=== PATIENT | female | born 1965 | race Caucasian/White ===

== ENCOUNTER 2017-02-26 15:50 | Emergency (ER) | payer BC ==
[~2017-02-26] VITALS: Ht 172.7 cm; Wt 120.2 kg
[~2017-02-26 15:50] MED LIST: AMOX-355 PO; BUPR300T PO; DULO60CA6 PO; LAMO100T69 PO; PALI6TAB PO; QTP200T PO
--- OUTSIDE RECORDS SUMMARY | 2017-02-26 15:55 | XMS REPORT ---
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
--- OUTSIDE RECORDS SUMMARY | 2017-02-26 15:56 | XMS REPORT ---
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 Problem Pain in soft tissues of limb 729.5 Active Assessment Cat bite, subsequent encounter W55.01XD Active Problem Routine general medical examination at health care facility V70.0 Active Problem Generalized hyperhidrosis 780.8 Active Medications Medication Code System Code Instructions Start Date End Date Status Dosage Vitamin D (Ergocalciferol) [facility] [id number] UNIT TAKE ONE CAPSULE BY MOUTH ONCE A WEEK Calcium [facility] [address]-40 600 MG Orally Twice a day OTC Jul 26, 2015 1 tablet with meals Invega [facility] [address]-15 6 MG Orally Once a day 1 tablet Cymbalta [facility] [address]-72 60 MG Twice a day December 29, 2013 1 capsule by Oral route Omeprazole [facility] [address]-47 20 MG Orally Once a day 1 capsule Naproxen [facility] [address]-83 500 MG Orally every 12 hrs Jul 26, 2015 1 tablet as needed Amoxicillin-Pot Clavulanate [facility] [address]-19 500-125 MG Orally every 8 hrs 1 tablet Naproxen [facility] [address]-21 500 MG Orally Twice a day 1 tablet Lamictal [facility] [address]-08 150 MG Orally Twice a day December 29, 2013 1 tablet by Oral route Wellbutrin SR [facility] [address]-64 150 mg December 29, 2013 150 mg by Oral route 2 times per day Lyrica [facility] [address]-95 75 MG Orally Twice a day Jun 14, 2015 1 capsule Vitamin D3 Maximum Strength [facility] 97917-31867 55562 Orally once a week Jul 1 tab Seroquel XR [facility] [address]-17 200 mg Sep 18, 2011 1 tablet by Oral route 1 time per day for 30 day(s) Procedures Procedure Coding System Code Date Office Visit, Est Pt., Level 3 CPT-4 35943 Aug 30, 2015 Vital Signs Date/Time: Aug 30, 2015 Temperature 98.3 F Weight 291.5 lbs Height 68 in BMI 44.32 Index Blood Pressure Diastolic 82 mmHg Blood Pressure Systolic 128 mmHg Cardiac Monitoring Heart Rate 96 bpm Results No Known Results Summary Purpose eClinicalWorks Submission
--- OUTSIDE RECORDS SUMMARY | 2017-02-26 15:56 | XMS REPORT ---
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 Problem Pain in soft tissues of limb 729.5 Active Assessment Right hip pain M25.551 Active Problem Routine general medical examination at health care facility V70.0 Active Problem Generalized hyperhidrosis 780.8 Active Medications Medication Code System Code Instructions Start Date End Date Status Dosage Walker [facility] [address] - as directed Jun 23, 2016 For use while ambulating as needed Amoxicillin [facility] [address]-11 500 MG Orally 3 times a day Jun 23, 2016 Jul 03, 2016 1 tablet Omeprazole [facility] [address]-00 20 MG Orally Once a day 1 capsule Seroquel XR [facility] [address]-33 200 mg Sep 18, 2011 1 tablet by Oral route 1 time per day for 30 day(s) Duloxetine HCl [facility] [address]-43 60 MG Orally Once a day not defined Naproxen [facility] [address]-41 500 MG Orally every 12 hrs Jul 26, 2015 1 tablet as needed Wever Carbonate ER [facility] [address]-05 450 MG Orally Twice a day 1 tablet Wellbutrin SR [facility] [address]-61 150 mg December 29, 2013 150 mg by Oral route 2 times per day Latuda [facility] [address]-93 120 MG Orally Once a day 1 tablet with food Lyrica [facility] [address]-10 75 MG Orally Once a day Jun 14, 2015 1 capsule at bedtime Procedures Procedure Coding System Code Date Office Visit, Est Pt., Level 3 CPT-4 25166 Jun 23, 2016 Vital Signs Date/Time: Jun 23, 2016 Cardiac Monitoring Heart Rate 82 bpm Weight 290.7 lbs Height 68 in BMI 44.20 Index Blood Pressure Diastolic 78 mmHg Blood Pressure Systolic 126 mmHg Results No Known Results Summary Purpose eClinicalWorks Submission
--- OUTSIDE RECORDS SUMMARY | 2017-02-26 15:56 | XMS REPORT ---
Author Author TUNDE HERNANDEZ Organization e[employer] Address Unknown Phone Unavailable Care Team Providers Care Marketing Developer Name Role Phone TUNDE HERNANDEZ CP Unavailable [...] Active Problem Generalized hyperhidrosis 780.8 Active Medications No Known Medications Results No Known Results Summary Purpose eClinicalWorks Submission
--- OUTSIDE RECORDS SUMMARY | 2017-02-26 15:56 | XMS REPORT ---
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
--- OUTSIDE RECORDS SUMMARY | 2017-02-26 15:56 | XMS REPORT ---
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 98367287 Problem Other malaise and fatigue 780.79 Active 433621827 Problem Generalized hyperhidrosis 780.8 Active 451790254 Problem Pain in soft tissues of limb 729.5 Active 15408603 Problem Ingrowing nail 703.0 Active 769180264 Problem Routine general medical examination at health care facility V70.0 Active 251973628 ALLERGIES Substance Reaction Event Type Date Status Triple Antibiotic burning Drug Allergy Mar, Active Codeine Phosphate Unknown Drug Allergy Mar, Active Antifungal burning Drug Allergy Mar, Active SOCIAL HISTORY No smoking Hx information available PLAN OF CARE VITAL SIGNS Height 68 in 2016-04-07 Weight 298.9 lbs 2016-04-07 Heart Rate 80 bpm 2016-04-07 Respiratory Rate 18 2016-04-07 BMI 45.44 kg/m2 2016-04-07 Blood pressure systolic 128 mmHg 2016-04-07 Blood pressure diastolic 76 mmHg 2016-04-07 MEDICATIONS Medication Instructions Dosage Frequency Start Date End Date Duration Status Omeprazole 20 MG Orally Once a day 1 capsule 24h Active Seroquel XR 200 mg 1 tablet by Oral route 1 time per day for 30 day(s) Sep, Active Naproxen 500 MG Orally every 12 hrs 1 tablet as needed 12h 10 Jul, 2015 Active Latuda 120 MG Orally Once a day 1 tablet with food 24h Active Lamictal 150 MG Orally once a day 1 tablet by Oral route 24h December, Active Lotrisone 1-0.05 % Externally Twice a day 1 application to affected area 12h 23 Sep, 2015 Active Duloxetine HCl 60 MG Orally Once a day 24h Active Wellbutrin SR 150 mg 150 mg by Oral route 2 times per day December, Active [place]ord Carbonate ER 450 MG Orally Twice a day 1 tablet 12h Active Lyrica 75 MG Orally Once a day 1 capsule at bedtime 24h May, Active RESULTS Name Result Date Reference Range Xray : Hip, Right 2 views (IN HOUSE) 2016-04-07 PROCEDURES Procedure Date Ordered Related Diagnosis Body Site X-RAY EXAM HIP UNI 2-3 VIEWS Apr 07, 2016 Office Visit, Est Pt., Level 3 Apr 07, 2016 IMMUNIZATIONS No Known Immunizations
--- OUTSIDE RECORDS SUMMARY | 2017-02-26 15:56 | XMS REPORT ---
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
--- OUTSIDE RECORDS SUMMARY | 2017-02-26 15:56 | XMS REPORT ---
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 Problem Pain in soft tissues of limb 729.5 Active Assessment Moderate episode of recurrent major depressive disorder F33.1 Active Problem Routine general medical examination at health care facility V70.0 Active Problem Generalized hyperhidrosis 780.8 Active Medications Medication Code System Code Instructions Start Date End Date Status Dosage Lyrica [facility] [address]-14 75 MG Orally Twice a day Jun 14, 2015 1 capsule Naproxen [facility] [address]-84 500 MG Orally every 12 hrs Jul 26, 2015 1 tablet as needed Seroquel XR [facility] [address]-94 200 mg Sep 18, 2011 1 tablet by Oral route 1 time per day for 30 day(s) Lotrisone [facility] [address]-44 1-0.05 % Externally Twice a day Oct 09, 2015 1 application to affected area Wellbutrin SR [facility] [address]-85 150 mg December 29, 2013 150 mg by Oral route 2 times per day Duloxetine HCl [facility] [address]-68 60 MG Orally Once a day not defined Latuda [facility] [address]-08 80 MG Orally twice a day 1 tablet with food Cymbalta [facility] [address]-08 60 MG Twice a day December 29, 2013 1 capsule by Oral route Omeprazole [facility] [address]-29 20 MG Orally Once a day 1 capsule Lamictal [facility] [address]-40 150 MG Orally Twice a day December 29, 2013 1 tablet by Oral route BuPROPion HCl [facility] [address]-95 not defined Hato Candal Carbonate ER [facility] [address]-28 450 MG Orally Twice a day 1 tablet Procedures Procedure Coding System Code Date Office Visit, Est Pt., Level 3 CPT-4 68332 March 03, 2016 Vital Signs Date/Time: March 03, 2016 Cardiac Monitoring Heart Rate 96 bpm Weight 296.6 lbs Height 68 in BMI 45.09 Index Blood Pressure Diastolic 84 mmHg Blood Pressure Systolic 124 mmHg Results No Known Results Summary Purpose eClinicalWorks Submission
--- OUTSIDE RECORDS SUMMARY | 2017-02-26 15:56 | XMS REPORT ---
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 Problem Pain in soft tissues of limb 729.5 Active Assessment Primary osteoarthritis involving multiple joints M15.0 Active Problem Routine general medical examination at health care facility V70.0 Active Problem Generalized hyperhidrosis 780.8 Active Medications Medication Code System Code Instructions Start Date End Date Status Dosage Lyrica [facility] [address]-05 100 MG Orally Once a day at bedtime Jun 14, 2015 1 capsule Invega [facility] [address]-60 6 MG Orally Once a day 1 tablet Naproxen [facility] [address]-29 500 MG Orally every 12 hrs Jul 26, 2015 1 tablet as needed Cymbalta [facility] [address]-22 60 MG Twice a day December 29, 2013 1 capsule by Oral route Lamictal [facility] [address]-64 150 MG Orally Twice a day December 29, 2013 1 tablet by Oral route Omeprazole [facility] [address]-23 20 MG Orally Once a day 1 capsule Calcium [facility] [address]-59 600 MG Orally Twice a day OTC Jul 26, 2015 1 tablet with meals Seroquel XR [facility] [address]-03 200 mg Sep 18, 2011 1 tablet by Oral route 1 time per day for 30 day(s) Vitamin D3 Maximum Strength [facility] 05466[address]403 Orally once a week Jul 1 tab Wellbutrin SR [facility] [address]-36 150 mg December 29, 2013 150 mg by Oral route 2 times per day Naproxen [facility] [address]-32 500 MG Orally Twice a day 1 tablet Procedures Procedure Coding System Code Date Office Visit, Est Pt., Level 3 CPT-4 34539 Jul 26, 2015 Vital Signs Date/Time: Jul 26, 2015 Temperature 98.0 F Weight 290.6 lbs Height 68 in BMI 44.18 Index Blood Pressure Diastolic 90 mmHg Blood Pressure Systolic 128 mmHg Cardiac Monitoring Heart Rate 104 bpm Results No Known Results Summary Purpose eClinicalWorks Submission
--- OUTSIDE RECORDS SUMMARY | 2017-02-26 15:57 | XMS REPORT ---
Author Author TUNDE HERNANDEZ Organization eClinicalWorks Address Unknown Phone Unavailable Care Team Providers Care Fluid Designer Name Role Phone TUNDE HERNANDEZ CP Unavailable [...] Start Date End Date Status Dosage Lyrica [facility] [address]-02 75 MG Orally Twice a day Jun 14, 2015 1 capsule Results No Known Results Summary Purpose eClinicalWorks Submission
--- OUTSIDE RECORDS SUMMARY | 2017-02-26 15:57 | XMS REPORT ---
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
--- OUTSIDE RECORDS SUMMARY | 2017-02-26 15:57 | XMS REPORT ---
Author Author TUNDE HERNANDEZ Organization eClinicalWorks Address Unknown Phone Unavailable Care Team Providers Care Mechanical Piping Designer Name Role Phone TUNDE HERNANDEZ CP [...]
--- OUTSIDE RECORDS SUMMARY | 2017-02-26 15:57 | XMS REPORT ---
Author Author TUNDE HERNANDEZ Organization eClinicalWorks Address Unknown Phone Unavailable Care Team Providers Care Casting House Worker Name Role Phone TUNDE HERNANDEZ CP Unavailable [...]
--- OUTSIDE RECORDS SUMMARY | 2017-02-26 15:57 | XMS REPORT ---
Author Author TUNDE HERNANDEZ [facility] eClinicalWorks Address Unknown Phone Unavailable Care Team Providers Care Financing Analyst Name Role Phone TUNDE HERNANDEZ CP Unavailable Allergies, Adverse Reactions, Alerts Substance Reaction Event Type Codeine Phosphate Info Not Available Drug Allergy Problems Problem Type Condition Code Onset Dates Condition Status Assessment Pain in joint, pain in unspecified joint M25.50 Active Problem Other malaise and fatigue 780.79 [...] Instructions Start Date End Date Status Dosage PredniSONE [facility] [address]-73 20 MG Orally Once a day Jun 14, 2015 Jun 19, 2015 1 tablet with food or milk Wellbutrin SR [facility] [address]-58 150 mg December 29, 2013 150 mg by Oral route 2 times per day Omeprazole [facility] [address]-25 20 MG Orally Once a day [address] [facility] [address]-65 60 MG Twice a day December 29, 2013 1 capsule by Oral route Lamictal [facility] [address]-76 150 MG Orally Twice a day December 29, 2013 1 tablet by Oral route Lyrica [facility] [address]-42 75 MG Orally Twice a day Jun 14, [address] [facility] [address]-41 500 MG Orally Twice a day 1 tablet Seroquel XR [facility] [address]-98 200 mg Sep 18, 2011 1 tablet by Oral route 1 time per day for 30 day(s) Procedures Procedure Coding System Code Date X-RAY EXAM OF LOWER SPINE CPT-4 50264 Jun 14, 2015 Office Visit, Est Pt., Level 3 CPT-4 68338 Jun 14, 2015 X-RAY EXAM OF HIP CPT-4 73575 Jun 14, 2015 Vital Signs Date/Time: Jun 14, 2015 Temperature 99.1 F Weight 289.1 lbs Height 68 in BMI 43.95 Index Blood Pressure Diastolic 82 mmHg Blood Pressure Systolic 130 mmHg Cardiac Monitoring Heart Rate 80 bpm Results No Known Results Summary Purpose eClinicalWorks Submission
--- OUTSIDE RECORDS SUMMARY | 2017-02-26 15:57 | XMS REPORT | Continuity of Care Document ---
Author Author Formerly [facility] Address Unknown Phone Unavailable Allergies Active Description Code Type Severity Reaction Onset Reported/Identified Relationship to Patient Clinical Status Yes codeine Drug Allergy 11/15/2008 Yes codeine Drug Allergy N/A N/A 11/15/2008 Yes codeine [id number] Drug Allergy Unknown N/A 04/24/2011 Medications Problems Date Dx Coded Attending Type Code Diagnosis Diagnosed By 07/16/1415 ANDREA GUILLORY Ot M16.11 UNILATERAL PRIMARY OSTEOARTHRITIS, RIGHT 05/26/2008 MUOGHALU DDS, MEL N V58.69 taking high-risk medication 05/26/2008 ERICK PEREZ APRN V58.69 taking high-risk medication 05/26/2008 TUNDE HERNANDEZ APRN S V58.69 taking high-risk medication 05/26/2008 ERICK PEREZ APRN V58.69 taking high-risk medication 05/26/2008 MUOGHALU DDS, MEL N V58.69 taking high-risk medication 11/15/2008 MUOGHALU DDS, MEL N 599.0 Urinary Tract Infection 11/15/2008 MUOGHALU DDS, MEL N 788.1 pain during urination (dysuria) 11/15/2008 ERICK PEREZ APRN 599.0 Urinary Tract Infection 11/15/2008 ERICK PEREZ APRN 788.1 pain during urination (dysuria) 11/15/2008 LUANN HERNANDEZ APRNA S 599.0 Urinary Tract Infection 11/15/2008 TUNDE HERNANDEZ APRN S 788.1 pain during urination (dysuria) 11/15/2008 ERICK PEREZ APRN 599.0 Urinary Tract Infection 11/15/2008 ERICK PEREZ APRN 788.1 pain during urination (dysuria) 11/15/2008 MUOGHALU TEOFILOS, MEL N 599.0 Urinary Tract Infection 11/15/2008 MUOGHALU DDS, MEL N 788.1 pain during urination (dysuria) 06/27/2009 MUOGHALU DDS, MEL N 300.4 DYSTHYMIC DISORDER 06/27/2009 MUOGHALU DDS, MEL N 354.0 Carpal Tunnel Syndrome 06/27/2009 MUOGHALU DDS, MEL N 379.43 Mydriasis (persistent), Not Due To Mydriatics 06/27/2009 ERICK PEREZ APRN 300.4 DYSTHYMIC DISORDER 06/27/2009 ERICK PEREZ APRN T 354.0 Carpal Tunnel Syndrome 06/27/2009 ERICK PEREZ APRN T 379.43 Mydriasis (persistent), Not Due To Mydriatics 06/27/2009 TUNDE HERNANDEZ APRN S 300.4 DYSTHYMIC DISORDER 06/27/2009 TUNDE HERNANDEZ APRN S 354.0 Carpal Tunnel Syndrome 06/27/2009 TUNDE HERNANDEZ APRN S 379.43 Mydriasis (persistent), Not Due To Mydriatics 06/27/2009 ERICK PEREZ APRN T 300.4 DYSTHYMIC DISORDER 06/27/2009 ERICK PEREZ APRN T 354.0 Carpal Tunnel Syndrome 06/27/2009 ERICK PEREZ APRN T 379.43 Mydriasis (persistent), Not Due To Mydriatics 06/27/2009 MUOGHALU DDS, MEL N 300.4 DYSTHYMIC DISORDER 06/27/2009 MUOGHALU DDS, MEL N 354.0 Carpal Tunnel Syndrome 06/27/2009 MUOGHALU DDS, MEL N 379.43 Mydriasis (persistent), Not Due To Mydriatics 10/11/2009 MUOGHALU DDS, MEL N 466.0 Acute Bronchitis 10/11/2009 ERICK PEREZ APRN 466.0 Acute Bronchitis 10/11/2009 TUNDE HERNANDEZ APRN S 466.0 Acute Bronchitis 10/11/2009 ERICK PEREZ APRN 466.0 Acute Bronchitis 10/11/2009 MUOGHALU DDS, MEL N 466.0 Acute Bronchitis 02/04/2010 MUOGHALU DDS, MEL N 459.81 Venous (peripheral) Insufficiency, Unspecified 02/04/2010 ERICK PEREZ APRN 459.81 Venous (peripheral) Insufficiency, Unspecified 02/04/2010 TUNDE HERNANDEZ APRN 459.81 Venous (peripheral) Insufficiency, Unspecified 02/04/2010 ERICK PEREZ APRN 459.81 Venous (peripheral) Insufficiency, Unspecified 02/04/2010 MUOGHALU DDS, MEL N 459.81 Venous (peripheral) Insufficiency, Unspecified 05/08/2010 MUOGHALU DDS, MEL N 729.5 Pain In Limb 05/08/2010 ERICK PEREZ APRN 729.5 Pain In Limb 05/08/2010 TUNDE HERNANDEZ APRN 729.5 Pain In Limb 05/08/2010 ERICK PEREZ APRN 729.5 Pain In Limb 05/08/2010 MUOGHALU DDS, MEL N 729.5 Pain In Limb 09/20/2010 MUOGHALU DDS, MEL N 726.72 Tendonitis Post Tibial 09/20/2010 MUOGHALU DDS, MEL N 726.79 Tendonitis Peroneal 09/20/2010 ERICK PEREZ APRN 726.72 Tendonitis Post Tibial 09/20/2010 ERICK PEREZ APRN 726.79 Tendonitis Peroneal 09/20/2010 TUNDE HERNANDEZ APRN S 726.72 Tendonitis Post Tibial 09/20/2010 TUNDE HERNANDEZ APRN S 726.79 Tendonitis Peroneal 09/20/2010 ERICK PEREZ APRN 726.72 Tendonitis Post Tibial 09/20/2010 ERICK PEREZ APRN 726.79 Tendonitis Peroneal 09/20/2010 MUOGHALU DDS, MEL N 726.72 Tendonitis Post Tibial 09/20/2010 MUOGHALU DDS, MEL N 726.79 Tendonitis Peroneal 01/15/2011 MUOGHALU DDS, MEL N 110.9 Dermatophytosis Of Unspecified Site 01/15/2011 ERICK PEREZ APRN 110.9 Dermatophytosis Of Unspecified Site 01/15/2011 TUNDE HERNANDEZ APRN 110.9 Dermatophytosis Of Unspecified Site 01/15/2011 ERICK PEREZ APRN 110.9 Dermatophytosis Of Unspecified Site 01/15/2011 MUOGHALU DDS, MEL N 110.9 Dermatophytosis Of Unspecified Site 04/24/2011 Ot 989.5 TOXIC EFFECT VENOM 04/24/2011 Ot E000.8 OTHER EXTERNAL CAUSE STATUS 04/24/2011 Ot E905.3 HORNET/WASP/BEE STING 09/18/2011 MUOGHALU DDS, MEL N 307.42 PERSISTENT DISORDER OF INITIATING OR MAINTAINING SLEEP 09/18/2011 MUOGHALU DDS, MEL N 780.79 fatigue 09/18/2011 ERICK PEREZ APRN 307.42 PERSISTENT DISORDER OF INITIATING OR MAINTAINING SLEEP 09/18/2011 ERICK PEREZ APRN 780.79 fatigue 09/18/2011 TUNDE HERNANDEZ APRN S 307.42 PERSISTENT DISORDER OF INITIATING OR MAINTAINING SLEEP 09/18/2011 TUNDE HERNANDEZ APRN S 780.79 fatigue 09/18/2011 ERICK PEREZ APRN 307.42 PERSISTENT DISORDER OF INITIATING OR MAINTAINING SLEEP 09/18/2011 ERICK PEREZ APRN 780.79 fatigue 09/18/2011 MUOGHALU DDS, MEL N 307.42 PERSISTENT DISORDER OF INITIATING OR MAINTAINING SLEEP 09/18/2011 MUOGHALU DDS, MEL N 780.79 fatigue 11/14/2013 TUNDE HERNANDEZ APRN 729.5 PAIN IN LIMB 11/14/2013 TUNDE HERNANDEZ APRN S 780.8 HOT FLASHES 11/14/2013 TUNDE HERNANDEZ APRN V70.0 EXAM - ROUTINE H&P 11/14/2013 ERICK PEREZ APRN 729.5 PAIN IN LIMB 11/14/2013 ERICK PEREZ APRN 780.8 HOT FLASHES 11/14/2013 ERICK PEREZ APRN V70.0 EXAM - ROUTINE H&P 12/06/2013 ERICK PEREZ APRN 703.0 NAIL INGROWN 06/19/2015 Ot V76.12 08/21/2015 TUNDE HERNANDEZ Ot M54.40 08/21/2015 TUNDE HERNANDEZ Ot M54.41 LUMBAGO WITH SCIATICA, RIGHT SIDE 08/21/2015 Ot V76.12 08/21/2015 TUNDE HERNANDEZ Ot M54.40 08/26/2015 CHAPITO SKINNER Ot L03.012 CELLULITIS OF LEFT FINGER 08/26/2015 CHAPITO SKINNER Ot S61.251A OPEN BITE OF LEFT INDEX FINGER W/O DAMAG 08/26/2015 CHAPITO SKINNER Ot W55.01XA BITTEN BY CAT, INITIAL ENCOUNTER 08/26/2015 CHAPITO SKINNER Ot Y92.[address] [facility] [address] [facility] 08/26/2015 CHAPITO SKINNER Ot Y99.8 OTHER EXTERNAL CAUSE STATUS 09/10/2015 Ot V76.12 09/10/2015 TUNDE HERNANDEZ Ot M54.41 09/18/2015 TUNDE HERNANDEZ Ot M54.41 LUMBAGO WITH SCIATICA, RIGHT SIDE 10/04/2015 Ot V76.12 10/04/2015 Ot V76.12 10/22/2015 Ot V76.12 11/21/2015 TUNDE HERNANDEZ Ot M54.41 12/12/2015 VELARDE DO, FAROOQ L Ot E86.0 DEHYDRATION 12/12/2015 VELARDE DO, FAROOQ L Ot R11.0 NAUSEA 12/13/2015 VELARDE DO, FAROOQ L Ot E86.0 DEHYDRATION 12/13/2015 VELARDE DO, FAROOQ L Ot R11.0 NAUSEA 12/13/2015 Ot V76.12 OTH SCREEN MAMMO-MALIGN NEOPLASM OF HILL 12/13/2015 TUNDE HERNANDEZ Ot M54.41 LUMBAGO WITH SCIATICA, RIGHT SIDE 12/14/2015 VELARDE DO, FAROOQ L Ot E86.0 DEHYDRATION 12/14/2015 VELARDE DO, FAROOQ L Ot R11.0 NAUSEA 12/14/2015 Ot V76.12 OTH SCREEN MAMMO-MALIGN NEOPLASM OF [place] 12/14/2015 TUNDE HERNANDEZ Ot M54.41 LUMBAGO WITH SCIATICA, RIGHT SIDE 12/26/2015 SILVIO BLACKMON MD Ot F33.3 MAJOR DEPRESSV DISORDER, RECURRENT, NORI 01/02/2016 SILVIO BLACKMON MD Ot F33.3 MAJOR DEPRESSV DISORDER, RECURRENT, NORI 01/04/2016 SILVIO BLACKMON MD Ot F33.3 MAJOR DEPRESSV DISORDER, RECURRENT, NORI 01/16/2016 TUNDE HERNANDEZ Ot M54.41 LUMBAGO WITH SCIATICA, RIGHT SIDE 01/16/2016 SILVIO BLACKMON MD Ot F33.3 MAJOR DEPRESSV DISORDER, RECURRENT, NORI 01/30/2016 TUNDE HERNANDEZ Ot M54.41 LUMBAGO WITH SCIATICA, RIGHT SIDE 02/08/2016 LORRI HILTON, SILVIO Jackman Ot F33.3 MAJOR DEPRESSV DISORDER, RECURRENT, NORI 05/22/2016 SILVIO BLACKMON MD, Ot F33.3 MAJOR DEPRESSV DISORDER, RECURRENT, NORI 05/22/2016 SILVIO BLACKMON MD, Ot F33.3 MAJOR DEPRESSV DISORDER, RECURRENT, NORI 06/25/2016 ANDREA GUILLORY Ot M16.11 UNILATERAL PRIMARY OSTEOARTHRITIS, RIGHT 07/17/2016 ANDREA GUILLORY Ot M16.11 UNILATERAL PRIMARY OSTEOARTHRITIS, RIGHT 08/01/2016 LORRI HILTON, SILVIO Jackman Ot F33.1 MAJOR DEPRESSIVE DISORDER, RECURRENT, [place] 08/13/2016 SILVIO BLACKMON MD Ot F33.1 MAJOR DEPRESSIVE DISORDER, RECURRENT, [place] 02/12/2017 TUNDE HERNANDEZ Ot M15.0 PRIMARY GENERALIZED (OSTEO)ARTHRITIS 02/18/2017 SILVIO BLACKMON MD Ot F33.3 MAJOR DEPRESSV DISORDER, RECURRENT, NORI 02/18/2017 SILVIO BLACKMON MD Ot F33.3 MAJOR DEPRESSV DISORDER, RECURRENT, NORI 02/18/2017 SILVIO BLACKMON MD Ot F33.1 MAJOR DEPRESSIVE DISORDER, RECURRENT, [place] 02/18/2017 TUNDE HERNANDEZ Ot M15.0 PRIMARY GENERALIZED (OSTEO)ARTHRITIS Procedures Code Description [place] [address] REMOVAL OF NAIL BED 12/06/2013 Results Test Result Range Complete blood count (CBC) with automated white blood cell (WBC) differential - 07/31/16 16:28 Blood leukocytes automated count (number/volume) 9.9 10*3/ uL 4.3-11.0 Blood erythrocytes automated count (number/volume) 4.47 10*6 /uL 4.35-5.85 Venous blood hemoglobin measurement (mass/volume) 13.1 g/dL 11.5-16.0 Blood hematocrit (volume fraction) 42 % 35-52 Automated erythrocyte mean corpuscular volume 93 [foz_us] 80-99 Automated erythrocyte mean corpuscular hemoglobin (mass per erythrocyte) 29 pg 25-34 Automated erythrocyte mean corpuscular hemoglobin concentration measurement ( mass/volume) 32 g/dL 32-36 Automated erythrocyte distribution width ratio 14.7 % 10.0-14.5 Automated blood platelet count (count/volume) 238 10*3/uL 130-400 Automated blood platelet mean volume measurement 9.8 [foz_us ] 7.4-10.4 Automated blood neutrophils/100 leukocytes 76 % 42-75 Automated blood lymphocytes/100 leukocytes 14 % 12-44 Blood monocytes/100 leukocytes 7 % 0-12 Automated blood eosinophils/100 leukocytes 2 % 0-10 Automated blood basophils/100 leukocytes 0 % 0-10 Blood neutrophils automated count (number/volume) 7.5 10*3 1.8-7.8 Blood lymphocytes automated count (number/volume) 1.4 10*3 1.0-4.0 Blood monocytes automated count (number/volume) 0.7 10*3 0.0-1.0 Automated eosinophil count 0.2 10*3/uL 0.0-0.3 Automated blood basophil count (count/volume) 0.0 10*3/uL 0.0-0.1 Comprehensive metabolic panel - 07/31/16 16:28 Serum or plasma sodium measurement (moles/volume) 133 mmol/ L 135-145 Serum or plasma potassium measurement (moles/volume) 4.0 mmol/L 3.6-5.0 Serum or plasma chloride measurement (moles/volume) 104 mmol /L 98-107 Carbon dioxide 21 mmol/L 21-32 Serum or plasma anion gap determination (moles/volume) 8 mmol/L 5-14 Serum or plasma urea nitrogen measurement (mass/volume) 18 mg/dL 7-18 Serum or plasma creatinine measurement (mass/volume) 1.16 mg /dL 0.60-1.30 Serum or plasma urea nitrogen/creatinine mass ratio 16 NRG Serum or plasma creatinine measurement with calculation of estimated glomerular filtration rate 49 NRG Serum or plasma glucose measurement (mass/volume) 97 mg/dL 70-105 Serum or plasma calcium measurement (mass/volume) 9.8 mg/dL 8.5-10.1 Serum or plasma total bilirubin measurement (mass/volume) 0.4 mg/dL 0.1-1.0 Serum or plasma alkaline phosphatase measurement (enzymatic activity/volume) 91 U/L 40-136 Serum or plasma aspartate aminotransferase measurement (enzymatic activity/ volume) 14 U/L 5-34 Serum or plasma alanine aminotransferase measurement (enzymatic activity/volume ) 12 U/L 0-55 Serum or plasma protein measurement (mass/volume) 7.1 g/dL 6.4-8.2 Serum or plasma albumin measurement (mass/volume) 4.4 g/dL 3.2-4.5 THYROID STIMULATING HORMONE - 07/31/16 16:28 THYROID STIMULATING HORMONE 2.49 u[iU]/mL 0.35-4.94 LITHIUM LEVEL - 07/31/16 16:28 [place] [mass/volume] in serum or plasma 0.9 % 0.5-1.5 Encounters ACCT No. Visit Date/Time Discharge Status Pt. Type Provider Facility Loc./Unit Complaint [id number] 12/06/2013 15:01:00 12/06/2013 23: 59:59 C[facility] Outpatient ERICK PEREZ APRN [id number] 11/14/2013 15:00:00 11/14/2013 23: 59:59 CLS Outpatient TUNDE HERNANDEZ APRN [id number] 03/14/2013 16:41:00 03/14/2013 23: 59:59 CLS Outpatient ERICK PEREZ APRN [id number] 03/29/2012 16:09:00 03/29/2012 23: 59:59 [facility] Outpatient MEL GRIGSBY DDS [id number] 03/29/2012 16:09:00 03/29/2012 23:59 :59 [facility] Outpatient MEL GRIGSBY DDS
[2017-02-26] MEDS ORDERED: ONDANSETRON 4 MG (ZOFRAN) ORAL DISSOLVE TAB PO ONE (16:00)
--- NOTE | 2017-02-26 16:01 | ED GI ---
General Chief Complaint: Abdominal/GI Problems Stated Complaint: NAUSEOUS Source of Information: Patient Exam Limitations: No Limitations History of Present Illness Time Seen By Provider: 15:59 Initial Comments To ER with nausea that started just prior to arrival. This started while she was at physical therapy. This will be her fourth visit in physical therapy where she is undergoing strengthening and weight loss exercises in preparation for a right hip replacement. She denies any pain or shortness of breath. She only complains of nausea and general weakness. She did not eat breakfast this morning and did not eat lunch today. Timing/Duration: 1/2 Hour Severity/Quality: Mild Radiation: No Radiation Activities at Onset: None Associated Symptoms: Nausea/Vomiting Allergies and Home Medications Allergies Coded Allergies: Codeine (Unverified Allergy, 04/24/11) Home Medications Amoxicillin/Potassium Clav 1 Each Tablet, 1 EACH PO TID, #30 Ref 0 Prescribed by: CHAPITO WEBB on 08/26/15 1354 Bupropion Hcl 300 Mg Tab.sr.24h, 1 TAB PO DAILY, (Reported) Duloxetine Hcl 60 Mg Capsule.dr, 1 EACH PO DAILY, (Reported) Lamotrigine 100 Mg Tablet, 1 EACH PO DAILY, (Reported) Paliperidone 6 Mg Tab.er.24, 6 MG PO DAILY, (Reported) Quetiapine Fumarate 200 Mg Tab, 400 MG PO HS, (Reported) Review of Systems Constitutional: see HPI EENTM: No Symptoms Reported Respiratory: No Symptoms Reported Cardiovascular: See HPI Gastrointestinal: See HPI, Denies Abdominal Pain, Nausea Genitourinary: No Symptoms Reported Musculoskeletal: no symptoms reported Skin: no symptoms reported Psychiatric/Neurological: No Symptoms Reported Endocrine: No Symptoms Reported Past Ajnoukx-Ekmhgf-Qjxsvg Hx Patient Social History Recent Foreign Travel: No Contact w/Someone Who Travel: No Immunizations Up To Date Tetanus Booster (TDap): Less than 5yrs Surgeries HX Surgeries: Yes Surgeries: Gallbladder Respiratory Hx Respiratory Disorders: No Cardiovascular Hx Cardiac Disorders: No Neurological Hx Neurological Disorders: No Reproductive System Female Reproductive Disorders: Ovarian Cyst Genitourinary Hx Genitourinary Disorders: No Gastrointestinal Hx Gastrointestinal Disorders: No Musculoskeletal Hx Musculoskeletal Disorders: No Endocrine Hx Endocrine Disorders: No Cancer Hx Cancer: No Psychosocial Hx Psychiatric Problems: Yes Behavioral Health Disorders: Anxiety, Depression Family Medical History Significant Family History: No Pertinent Family Hx Physical Exam Vital Signs VS - Last 72 Hours, by Label 02/26/17 15:55 Temp 97.3 Pulse 82 Resp 20 B/P (MAP) 123/83 Pulse Ox 100 O2 Delivery Room Air Capillary Refill : General Appearance: WD/WN, no apparent distress HEENT: PERRL/EOMI, normal ENT inspection Neck: non-tender, full range of motion Respiratory: normal breath sounds, no respiratory distress, no accessory muscle use Cardiovascular: regular rate, rhythm, no murmur Gastrointestinal: normal bowel sounds, non tender, soft Extremities: normal range of motion, non-tender Neurologic/Psychiatric: alert, normal mood/affect, oriented x 3 Skin: normal color, warm/dry Progress/Results/Core Measures Results/Orders Lab Results Laboratory Tests Test 02/26/17 16:09 02/26/17 16:11 Range/Units White Blood Count 10.6 4.3-11.0 10^3/uL Red Blood Count 4.49 4.35-5.85 10^6/uL Hemoglobin 13.7 11.5-16.0 G/DL Hematocrit 42 35-52 % Mean Corpuscular Volume 94 80-99 FL Mean Corpuscular Hemoglobin 31 25-34 PG Mean Corpuscular Hemoglobin Concent 32 32-36 G/DL Red Cell Distribution Width 13.5 10.0-14.5 % Platelet Count 246 130-400 10^3/uL Mean Platelet Volume 9.8 7.4-10.4 FL Neutrophils (%) (Auto) 80 H 42-75 % Lymphocytes (%) (Auto) 13 12-44 % Monocytes (%) (Auto) 6 0-12 % Eosinophils (%) (Auto) 1 0-10 % Basophils (%) (Auto) 0 0-10 % Neutrophils # (Auto) 8.5 H 1.8-7.8 X 10^3 Lymphocytes # (Auto) 1.4 1.0-4.0 X 10^3 Monocytes # (Auto) 0.6 0.0-1.0 X 10^3 Eosinophils # (Auto) 0.1 0.0-0.3 10^3/uL Basophils # (Auto) 0.0 0.0-0.1 10^3/uL Sodium Level 137 135-145 MMOL/L Potassium Level 3.6 3.6-5.0 MMOL/L Chloride Level 103 98-107 MMOL/L Carbon Dioxide Level 24 21-32 MMOL/L Anion Gap 10 5-14 MMOL/L Blood Urea Nitrogen 12 7-18 MG/DL Creatinine 1.27 0.60-1.30 MG/DL Estimat Glomerular Filtration Rate 44 BUN/Creatinine Ratio 9 Glucose Level 113 H 70-105 MG/DL Calcium Level 9.8 8.5-10.1 MG/DL Total Bilirubin 0.7 0.1-1.0 MG/DL Aspartate Amino Transf (AST/SGOT) 15 5-34 U/L Alanine Aminotransferase (ALT/SGPT) 16 0-55 U/L Alkaline Phosphatase 106 40-136 U/L Troponin I < 0.30 <0.30 NG/ML Total Protein 7.1 6.4-8.2 GM/DL Albumin 4.3 3.2-4.5 GM/DL Lipase 25 8-78 U/L Urine Color YELLOW Urine Clarity CLEAR Urine pH 6.5 5-9 Urine Specific [place] 1.010 L 1.016-1.022 Urine Protein NEGATIVE NEGATIVE Urine Glucose (UA) NEGATIVE NEGATIVE Urine Ketones NEGATIVE NEGATIVE Urine Nitrite NEGATIVE NEGATIVE Urine Bilirubin NEGATIVE NEGATIVE Urine Urobilinogen NORMAL NORMAL MG/DL Urine Leukocyte Esterase NEGATIVE NEGATIVE Urine RBC (Auto) NEGATIVE NEGATIVE Urine RBC NONE /HPF Urine WBC NONE /HPF Urine Squamous Epithelial Cells 2-5 /HPF Urine Crystals NONE /LPF Urine Bacteria NEGATIVE /HPF Urine Casts NONE /LPF Urine Mucus NEGATIVE /LPF Urine Culture Indicated NO My Orders Orders - JAYLIN ZARATE APRN Cbc With Automated Diff (02/26/17 15:57) Comprehensive Metabolic Panel (02/26/17 15:57) Lipase (02/26/17 15:57) Troponin I (02/26/17 15:57) Ekg Tracing (02/26/17 15:57) Ua Culture If Indicated (02/26/17 15:57) Ondansetron Oral Dissolve Tab (Zofran (02/26/17 16:00) Vital Signs/I&O Vital Sign - Last 12Hours 02/26/17 15:55 Temp 97.3 Pulse 82 Resp 20 B/P (MAP) 123/83 Pulse Ox 100 O2 Delivery Room Air Departure Communication Progress Notes Patient was offered Zofran here but she states that it does not work for her so she declined. I then offered her Phenergan but she states she has to drive home to [place] and does not want that either. Impression Impression: Primary Impression: Nausea alone Disposition: 01 HOME, SELF-CARE Condition: Stable Departure-Patient Inst. Decision time for Depature: 17:03 Referrals: TUNDE HERNANDEZ (PCP) Primary Care Physician [facility] (Family) Primary Care Physician Patient Instructions: Nausea and Vomiting, Adult Add. Discharge Instructions: 1. Return to ER for any concerns 2. All discharge instructions reviewed with patient and/or family. Voiced understanding. JAYLIN ZARATE SENIOR TECHNICAL ANALYST Feb 26, 2017 16:01
[2017-02-26 16:30] LABS: BASOPHILS % (AUTO) 0 % (0-10); EOSINOPHILS # (AUTO) 0.1 10^3/uL (0.0-0.3); EOSINOPHILS % (AUTO) 1 % (0-10); LYMPHOCYTES # (AUTO) 1.4 X 10^3 (1.0-4.0); LYMPHOCYTES % (AUTO) 13 % (12-44); MEAN CORPUSCULAR HEMOGLOBIN 31 PG (25-34); MEAN CORPUSCULAR HGB CONC 32 G/DL (32-36); MEAN CORPUSCULAR VOLUME 94 FL (80-99); MEAN PLATELET VOLUME 9.8 FL (7.4-10.4); MONOCYTES # (AUTO) 0.6 X 10^3 (0.0-1.0); MONOCYTES % (AUTO) 6 % (0-12); NEUTROPHILS # (AUTO) 8.5 X 10^3 (1.8-7.8); NEUTROPHILS % (AUTO) 80 % (42-75); PLATELET COUNT 246 10^3/uL (130-400); RED BLOOD COUNT 4.49 10^6/uL (4.35-5.85); RED CELL DISTRIBUTION WIDTH 13.5 % (10.0-14.5); WHITE BLOOD COUNT 10.6 10^3/uL (4.3-11.0)
[2017-02-26 16:44] LABS: BILIRUBIN,URINE NEGATIVE (NEGATIVE); KETONES,URINE NEGATIVE (NEGATIVE); LEUKOCYTE ESTERASE ,URINE NEGATIVE (NEGATIVE); NITRITE,URINE NEGATIVE (NEGATIVE); PH,URINE 6.5 (5-9); PROTEIN,URINE NEGATIVE (NEGATIVE); UROBILINOGEN,URINE NORMAL (NORMAL)
[2017-02-26 16:45] LABS: TROPONIN I < 0.30 NG/ML (<0.30)
[2017-02-26 16:52] LABS: ALANINE AMINOTRANSFERASE 16 U/L (0-55); ALBUMIN 4.3 GM/DL (3.2-4.5); ANION GAP 10 MMOL/L (5-14); ASPARTATE AMINO TRANSFERASE 15 U/L (5-34); BILIRUBIN,TOTAL 0.7 MG/DL (0.1-1.0); BLOOD UREA NITROGEN 12 MG/DL (7-18); BUN/CREATININE RATIO 9; CALCIUM 9.8 MG/DL (8.5-10.1); CARBON DIOXIDE 24 MMOL/L (21-32); CHLORIDE 103 MMOL/L (98-107); CREATININE SERUM 1.27 MG/DL (0.60-1.30); GFR ESTIMATED 44; GLUCOSE 113 MG/DL (70-105); LIPASE 25 U/L (8-78); POTASSIUM 3.6 MMOL/L (3.6-5.0); SODIUM 137 MMOL/L (135-145); TOTAL PROTEIN 7.1 GM/DL (6.4-8.2)
[2017-02-26 17:09] VITALS: BP 123/83
== END 2017-02-26 17:09 | disposition home or self-care (01) ==
LOC: EDUNIT# 15:50 → ER 15:51
DX: R11.0 Nausea (principal)
CPT/HCPCS: 36415; 80053; 81000; 83690; 84484; 85025; 93005

== ENCOUNTER 2017-04-03 13:00 | Outpatient (RCR) | payer BC, OTHER | END 2017-04-03 14:38 | disposition home or self-care (01) | PROVIDERS: ATTEND Nurse Practitioner Community Health | DX: M15.0 Primary generalized (osteo)arthritis (principal) ==

== ENCOUNTER 2023-07-10 14:52 | Emergency (ER) | payer OTHER ==
[~2023-07-10] VITALS: Ht 172.7 cm; Wt 117.9 kg
--- NOTE | 2023-07-10 15:32 | ED Lower Extremity ---
General Chief Complaint: Lower Extremity Stated Complaint: RT HIP PAIN Nursing Triage Note: PT TO RM 6 BY WC WITH COMPLAINT OF RIGHT HIP PAIN. STATES HER PAIN STARTED SEVERAL DAYS AGO. STATES SHE WANTS XRAYS DONE AND SENT TO HER ORTHOPEDIC IN . DENIES INJURY. Source: patient Exam Limitations: no limitations History of Present Illness Date Seen by Provider: Jul 10, 2023 Time Seen by Provider: 15:20 Initial Comments 57-year-old female presents to the ER with complaint of right hip pain. States that the pain has become worse over the last several days. She had this hip replaced in November 2020 at . She reports difficulty walking due to the pain. She last took Tylenol approximately 45 minutes prior to arrival. Patient states she took 4 tablets of the Tylenol, patient educated on correct dosage of Tylenol. Denies fevers, abdominal pain, nausea, vomiting, body aches. Allergies and Home Medications Allergies Coded Allergies: Codeine (Unverified Allergy, 04/24/11) Patient Home Medication List Home Medication List Reviewed: Yes Amoxicillin/Potassium Clav (Augmentin 500-125 Tablet) 1 Each Tablet, 1 EACH PO TID Prescribed by: CHAPITO WEBB on 08/26/15 1354 Bupropion Hcl (Wellbutrin Xl) 300 Mg Tab.sr.24h, 1 TAB PO DAILY, (Reported) Entered as Reported by: YEN SOSA on 04/24/11 1405 Duloxetine Hcl (Cymbalta) 60 Mg Capsule.dr, 1 EACH PO DAILY, (Reported) Entered as Reported by: YEN SOSA on 04/24/11 1405 Lamotrigine (Lamictal) 100 Mg Tablet, 1 EACH PO DAILY, (Reported) Entered as Reported by: YEN SOSA on 04/24/11 1405 Paliperidone (Invega) 6 Mg Tab.er.24, 6 MG PO DAILY, (Reported) Entered as Reported by: MIKE VITALE on 08/26/15 1322 Quetiapine Fumarate (Seroquel) 200 Mg Tab, 400 MG PO HS, (Reported) Entered as Reported by: YEN SOSA on 04/24/11 1405 Tramadol HCl (Tramadol HCl) 50 Mg Tablet, 50 MG PO Q6H Prescribed by: Bev Almaraz on 07/10/23 1635 Review of Systems Constitutional: see HPI Past Fvyjplr-Cagriv-Byailt Hx Patient Social History Tobacco Use?: No Use of E-Cig and/or Vaping dev: No Substance use?: No Alcohol Use?: No Pt feels they are or have been: No Immunizations Up To Date Tetanus Booster (TDap): Less than 5yrs Seasonal Allergies Seasonal Allergies: No Past Medical History Surgeries: Yes Gallbladder Respiratory: No Cardiac: No Neurological: No Female Reproductive Disorders: Ovarian Cyst Genitourinary: No Gastrointestinal: No Musculoskeletal: No Endocrine: No HEENT: No Cancer: No Psychosocial: Yes Anxiety, Depression Integumentary: No Blood Disorders: No Family Medical History No Pertinent Family Hx Physical Exam Vital Signs Vital Signs - First Documented 07/10/23 15:12 Temp 36.1 Pulse 69 Resp 17 B/P (MAP) 108/77 (87) Pulse Ox 99 O2 Delivery Room Air Capillary Refill : Less Than 3 Seconds Height, Weight, BMI Height: 5'8" Weight: 265lbs. oz. 120.524452ql; 39.00 BMI Method:Stated General Appearance: WD/WN, no apparent distress Neck: supple, normal inspection Cardiovascular: regular rate, rhythm Respiratory: lungs clear, normal breath sounds, no respiratory distress, no accessory muscle use Hips: right hip normal range of motion, right hip bone tenderness, right hip pain, right hip other (No erythema, no obvious swelling but difficult to determine based on body habitus, temperature of the skin feels similar to the rest of her skin, no rashes noted) Neurologic/Psychiatric: alert, normal mood/affect Skin: normal color, warm/dry Progress/Results/Core Measures Results/Orders My Orders Orders - BEV KU APRN Hip, Right, 2 Views (07/10/23 15:28) Vital Signs/I&O 07/10/23 15:12 Temp 36.1 Pulse 69 Resp 17 B/P (MAP) 108/77 (87) Pulse Ox 99 O2 Delivery Room Air Blood Pressure Mean: 87 Progress Progress Note : Progress Note Patient seen and evaluated, resting comfortably in bed, no acute distress. Based on exam and symptoms, x-ray of right hip ordered. I do not think this is septic joint, patient has full range of motion, no erythema, no obvious swelling although this is difficult to tell due to body habitus, no difference in skin temperature over the joint. Patient also has no rashes over the joint. Patient drove herself here, unable to give her narcotic pain medication. Patient also has a history of kidney disease, so I do not want to give ibuprofen or Toradol. 1628 x-ray reviewed. 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 No other acute osseous abnormality. The heterotopic bone may be the cause of patient's pain. Results discussed with patient. Will discharge with prescription for tramadol. Patient is stable for discharge. Discharge instructions and return precautions provided. Diagnostic Imaging Diagonstic Imaging: Xray Plain Films/CT/US/NM/MRI: chest Comments [facility] [place], [place] NAME: BRIGHT LIM [facility] REC#: [id number] PT STATUS: REG ER : 1965 PHYSICIAN: BEV KU APRN ADMIT DATE: 07/10/23/ER Signed Date of Exam:07/10/23 HIP, RIGHT, 2 VIEWS HIP, RIGHT, 2 VIEWS INDICATION: Right hip pain COMPARISON: None available. 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 No acute fracture or features of prosthesis loosening. No osteolysis is noted. Right obturator remains intact. The SI joint is normal in alignment on the right side. 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 IMPRESSION: No acute osseous abnormality about the hip. Dictated by: Dictated on workstation # [id number] Dict: 07/10/23 1554 Trans: 07/10/23 1555 [facility] [id number] Interpreted by: BRANDI RYAN MD Electronically signed by: BRANDI RYAN MD 07/10/23 1555 Departure Impression Primary Impression: Right hip pain Disposition: 01 HOME, SELF-CARE Condition: Stable Departure-Patient Inst. Decision time for Depature: 16:30 Referrals: BUFFY SIM MD (PCP/Family) Primary Care Physician Patient Instructions: Hip Pain (DC) Add. Discharge Instructions: Follow-up with your Ortho surgeon. Take tramadol as needed for pain. It may make you sleepy. It can also cause constipation. You may continue to take Tylenol as needed for pain. You can take up to 1000 mg every 8 hours. Return for fever, inability to move the joint, redness or swelling around the joint, or any other new, concerning, or worsening symptoms. All discharge instructions reviewed with patient and/or family. Voiced understanding. Scripts Tramadol HCl (Tramadol HCl) 50 Mg Tablet 50 MG PO Q6H, #15 TAB 0 Refills Prov: BEV KU APRN 07/10/23 BEV KU APRN Jul 10, 2023 15:32
--- NOTE | 2023-07-10 15:57 | Diagnostic Imaging Report ---
HIP, RIGHT, 2 VIEWS INDICATION: Right hip pain COMPARISON: None available. 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 No acute fracture or features of prosthesis loosening. No osteolysis is noted. Right obturator remains intact. The SI joint is normal in alignment on the right side. 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 IMPRESSION: No acute osseous abnormality about the hip. Dictated by: Dictated on workstation # [id number]
[2023-07-10] MEDS ORDERED: TRAM50TA3 PO (16:34)
[2023-07-10 16:47] VITALS: BP 108/77
== END 2023-07-10 16:47 | disposition home or self-care (01) ==
LOC: EDUNIT# 14:52 → ER 14:55
DX: M25.551 Pain in right hip (principal); Z96.641 Presence of right artificial hip joint
CPT/HCPCS: 73502; 99281